=== PATIENT | female | born 1985 | race Caucasian/White ===

== ENCOUNTER → 2017-04-10 10:23 | Outpatient (CLI) | payer MEDICAID ==
[2015-05-26 10:06] VITALS: BMI 51.4
[~2017-04-10 10:23] MED LIST: BACLOFEN10 MG PO; EZFE 200200 MG PO; HCTZ25 MG PO; MOBIC7.5 MG PO; PRILOSEC20 MG PO; PROZAC20 MG PO; PROZAC40 MG PO; ULTRAM50 MG PO
== END | disposition home or self-care (01) ==
LOC: D.RT 03-12 10:00 → D.CT 03-12 11:00 → D.RT 04-09 14:00 → D.CT 04-09 15:00 → D.RT 10:00
DX: J98.4 Other disorders of lung (principal); D86.9 Sarcoidosis, unspecified

== ENCOUNTER → 2017-07-17 11:19 | Outpatient (CLI) | payer MEDICAID ==
[2015-05-26 10:06] VITALS: BMI 51.4
== END | disposition home or self-care (01) ==
LOC: D.CT 07-16 10:30
DX: R59.0 Localized enlarged lymph nodes (principal); J98.4 Other disorders of lung

== ENCOUNTER → 2018-02-26 07:40 | Outpatient (CLI) | payer MEDICAID ==
[2015-05-26 10:06] VITALS: BMI 51.4
== END | disposition home or self-care (01) ==
LOC: D.RT 01-27 10:00 → D.CT 01-27 11:00 → D.RT 07:40
DX: J98.4 Other disorders of lung (principal); D86.9 Sarcoidosis, unspecified

== ENCOUNTER → 2018-12-22 11:45 | Outpatient (CLI) | payer MEDICAID ==
[2015-05-26 10:06] VITALS: BMI 51.4
== END | disposition home or self-care (01) ==
LOC: D.RT 08-26 09:00 → D.CT 08-26 10:00 → D.RT 10-13 12:00
PROVIDERS: ATTEND Internal Medicine Pulmonary Disease
DX: J98.4 Other disorders of lung (principal)

== ENCOUNTER → 2019-06-17 10:15 | Outpatient (CLI) | payer MEDICAID ==
[2015-05-26 10:06] VITALS: BMI 51.4
== END | disposition home or self-care (01) ==
LOC: D.RT 10:15 → D.CT 11:00
PROVIDERS: ATTEND Internal Medicine Pulmonary Disease
DX: D86.9 Sarcoidosis, unspecified (principal)